=== PATIENT | male | born 1995 | race Caucasian/White ===

== ENCOUNTER 2024-03-29 18:50 | Emergency (ER) | payer MEDICAID ==
[~2024-03-29] VITALS: Ht 177.8 cm; Wt 77.0 kg
[2024-03-29 18:54] VITALS: TEMP 98.2
[2024-03-29 19:25] LABS: CLARITY URINE CLEAR (CLEAR); COLOR URINE YELLOW (YELLOW); GLUCOSE URINE NEGATIVE (NEGATIVE); KETONES URINE NEGATIVE (NEGATIVE); LEUKOCYTE ESTERASE URINE NEGATIVE (NEGATIVE); NITRITE URINE NEGATIVE (NEGATIVE); OCCULT BLOOD URINE NEGATIVE (NEGATIVE); PH URINE 7.5 (4.5-8.0); PROTEIN URINE NEGATIVE (NEGATIVE); SPECIFIC GRAVITY URINE 1.003 (1.005-1.030); UROBILINOGEN URINE 0.2 E.U./dL (0.2-1.0)
[2024-03-29 19:42] LABS: BASOPHILS % 0.6 % (0.0-2.0); EOSINOPHILS % 9.1 % (0.0-5.0); HEMATOCRIT. 42.3 % (42.0-52.0); HEMOGLOBIN. 14.4 g/dL (14.0-18.0); LYMPHOCYTES % 31.1 % (20.0-50.0); MEAN CORPUSCULAR HEMOGLOBIN 31.5 pg (28.0-32.0); MEAN CORPUSCULAR VOLUME 92.7 fL (80.0-94.0); MEAN PLATELET VOLUME 7.9 fl (7.4-10.4); MONOCYTES % 8.3 % (2.0-8.0); NEUTROPHILS % 50.9 % (40.0-76.0); PLATELET 192 x1000/uL (130-400); RED BLOOD CELL COUNT 4.56 mill/uL (4.7-6.1); RED CELL DISTRIBUTION WIDTH 13.1 % (11.6-14.6); WHITE BLOOD COUNT 5.1 x1000/uL (4.5-11.0)
[2024-03-29 19:47] LABS: CARBON DIOXIDE 32 mEq/L (21-32); CHLORIDE 107 mEq/L (98-107); POTASSIUM 3.5 mEq/L (3.5-5.1); SODIUM 143 mEq/L (136-145)
[2024-03-29 19:48] LABS: CALCIUM 9.5 mg/dL (8.7-10.4)
[2024-03-29 19:51] LABS: D-DIMER 0.73 mg/L FEU (<0.50); INR 1.1; PROTHROMBIN TIME 11.7 sec (9.6-11.0)
[2024-03-29 19:53] LABS: GLUCOSE 95 mg/dL (70-105); UREA NITROGEN BLOOD 12 mg/dL (9-23)
[2024-03-29 19:54] LABS: ALANINE AMINOTRANSFERASE 22 IU/L (10-49); ALBUMIN 4.4 g/dL (3.2-4.8); ASPARTATE AMINOTRANSFERASE 14 IU/L (<34)
[2024-03-29 19:55] LABS: BILIRUBIN DIRECT 0.2 mg/dL (<=3.0); BILIRUBIN TOTAL 0.6 mg/dL (0.1-1.0)
[2024-03-29 20:25] LABS: TROPONIN I HIGH SENSITIVITY < 4 ng/L (3.0-53)
[2024-03-29] MEDS: IPRATROPIUM BROMIDE (0.02%) 0.5MG/2.5ML NEB HHN STA (21:13)
[2024-03-29 21:16] VITALS: PULSE 56; RESP 16; O2SAT 100
[2024-03-29] MEDS: PREDNISONE 20MG TABLET PO STA (21:17)
[2024-03-29] MEDS: ALBUTEROL (0.083%) 2.5MG/3ML NEB HHN STA (21:17)
[2024-03-29 22:30] VITALS: BP 112/74; PULSE 60; RESP 16
[2024-03-29] MEDS: IOHEXOL-350 100 ML BOTTLE ONE (23:01)
== END 2024-03-29 23:37 | disposition home or self-care (01) ==
LOC: ER 18:50
DX: F41.0 Panic disorder [episodic paroxysmal anxiety] (principal); F19.90 Other psychoactive substance use, unspecified, uncomplicated; J45.901 Unspecified asthma with (acute) exacerbation; Z88.0 Allergy status to penicillin; Z86.74 Personal history of sudden cardiac arrest; Z88.1 Allergy status to other antibiotic agents
CPT/HCPCS: 80076; 80048; 81003; 83880; 83690; 85025; 85379; 85610; 84484; 36415; 71045; 71275; 94640; 93005; 99291; Q9967; J7512; Z7610

== ENCOUNTER 2024-04-07 18:12 | Emergency (ER) | payer MEDICAID ==
[~2024-04-07] VITALS: Ht 180.3 cm; Wt 73.0 kg
[2024-04-07 18:14] VITALS: TEMP 97.4; O2SAT 98
[2024-04-07] MEDS: SODIUM CHLORIDE 0.9% 1,000 ML IV ONE (19:15)
[2024-04-07 20:10] VITALS: BP 124/86; PULSE 78; RESP 15
[2024-04-07] MEDS: KETOROLAC 15MG/ML VIAL IV ONE (20:10)
[2024-04-07] MEDS: LEVETIRACETAM 500MG PREMIX 100 ML IV ONE (20:10)
[2024-04-07 20:21] LABS: BASOPHILS % 0.4 % (0.0-2.0); EOSINOPHILS % 0.6 % (0.0-5.0); HEMOGLOBIN. 14.4 g/dL (14.0-18.0); LYMPHOCYTES % 11.1 % (20.0-50.0); MEAN CORPUSCULAR HEMOGLOBIN 31.3 pg (28.0-32.0); MEAN CORPUSCULAR HGB CONC 34.2 g/dL (31.0-37.0); MEAN CORPUSCULAR VOLUME 91.5 fL (80.0-94.0); MONOCYTES % 7.6 % (2.0-8.0); NEUTROPHILS % 80.3 % (40.0-76.0); PLATELET 168 x1000/uL (130-400); RED BLOOD CELL COUNT 4.59 mill/uL (4.7-6.1); RED CELL DISTRIBUTION WIDTH 12.9 % (11.6-14.6); WHITE BLOOD COUNT 8.9 x1000/uL (4.5-11.0)
[2024-04-07 20:30] LABS: CHLORIDE 108 mEq/L (98-107); POTASSIUM 4.2 mEq/L (3.5-5.1); SODIUM 142 mEq/L (136-145)
[2024-04-07 20:31] LABS: CARBON DIOXIDE 30 mEq/L (21-32)
[2024-04-07 20:32] LABS: CALCIUM 8.9 mg/dL (8.7-10.4)
[2024-04-07 20:36] LABS: CREATININE 0.9 mg/dL (0.6-1.3)
[2024-04-07 20:37] LABS: GLUCOSE 93 mg/dL (70-105); UREA NITROGEN BLOOD 9 mg/dL (9-23)
[2024-04-07 20:38] LABS: ALANINE AMINOTRANSFERASE 12 IU/L (10-49); ALBUMIN 4.1 g/dL (3.2-4.8); ASPARTATE AMINOTRANSFERASE 19 IU/L (<34)
[2024-04-07 20:39] LABS: BILIRUBIN DIRECT 0.2 mg/dL (<=3.0); BILIRUBIN TOTAL 0.9 mg/dL (0.1-1.0); PROTEIN TOTAL 6.5 g/dL (6.0-8.3)
== END 2024-04-07 21:41 | disposition home or self-care (01) ==
LOC: ER 18:12
DX: R56.9 Unspecified convulsions (principal); J45.909 Unspecified asthma, uncomplicated; F12.10 Cannabis abuse, uncomplicated; Z88.0 Allergy status to penicillin; Z88.1 Allergy status to other antibiotic agents
CPT/HCPCS: 80076; 80048; 85025; 36415; 73030; 70450; 93005; 96361; 96365; 96375; 99285; J1953; J1885; J7030; Z7610